=== PATIENT | female | born 1975 ===

== ENCOUNTER 2017-12-23 20:02 | Emergency (ER) | payer OTHER ==
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
[2017-12-24 00:52] VITALS: RESP 18
[2017-12-24 07:16] VITALS: BP 107/64; PULSE 84; TEMP 98.7
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
[2017-12-25 00:38] VITALS: O2SAT 99
== END 2017-12-24 02:40 | disposition home or self-care (01) ==
LOC: H.ER 20:02 → H.EROB2 20:02 → H.ER 12-24 00:53 → H.EROB2 12-24 02:40
DX: O26.92 Pregnancy related conditions, unspecified, second trimester (principal); S70.11XA Contusion of right thigh, initial encounter; Z82.49 Family history of ischemic heart disease and other diseases of the circulatory system; O32.1XX0 Maternal care for breech presentation, not applicable or unspecified; Z3A.25 25 weeks gestation of pregnancy; V89.2XXA Person injured in unspecified motor-vehicle accident, traffic, initial encounter